=== PATIENT | male | born 2000 | race African-American/Black ===

== ENCOUNTER 2023-11-20 08:22 | Emergency (ER) | payer MEDICAID ==
[~2023-11-20] VITALS: Ht 182.9 cm; Wt 87.0 kg
[2023-11-20 10:46] VITALS: BP 120/78; PULSE 62; RESP 18; TEMP 98; O2SAT 98
[2023-11-20] MEDS: LIDOCAINE 1% HCL (LOCAL ANESTH.) INJ 20ML MDV ID ONE (13:26)
[2023-11-20] MEDS: NEOMYCIN-BACITRACIN-POLYM UNITDOSE PKG TOP OINT TOP ONE (13:47)
[2023-11-20] MEDS ORDERED: BACDST PO (14:02)
[2023-11-20] MEDS ORDERED: cefTRIAXone SOD 500 MG VL IM ONE (14:15)
== END 2023-11-20 14:14 | disposition home or self-care (01) ==
LOC: ER 08:22
DX: L60.0 Ingrowing nail (principal)
CPT/HCPCS: 11730; 73630; 99284; J2001